=== PATIENT | male | born 1985 | race American Indian/Alaskan Native ===

== ENCOUNTER 2020-07-03 00:46 | Emergency (ER) | payer BC ==
[2020-07-03] MEDS ORDERED: ASPIRIN 325 MG TAB PO ONE (00:49)
--- NOTE | 2020-07-03 01:17 | Emergency Department Report ---
ED Chest Pain HPI - General Chief Complaint: Chest Pain Stated Complaint: CHEST PAIN Time Seen by Provider: 07/03/20 01:05 Source: patient Mode of arrival: Ambulatory Limitations: No Limitations - History of Present Illness Initial Comments: 35-year-old male presents to ED with chest pain x2 weeks. Patient states pain is located in the substernal and radiates down into the epigastric area and over to the left upper quadrant. Patient reports previous episodes of pancreatitis in the past. States this pain sort of feels like his pancreatitis. Patient denies any nausea, vomiting, diarrhea. Patient denies any cough or shortness of breath. He denies any diaphoresis. Patient denies any tobacco use. He denies any alcohol use. States he has been told in the past that his pancreatitis is triggered by his diet. MD Complaint: chest pain -: week(s) (2) Onset: during rest Pain Location: substernal Pain Radiation: abdomen (Epigastrium) Severity: moderate Severity scale (0 -10): 10 Quality: sharp Consistency: intermittent Improves With: nothing Worsens With: nothing re: denies: nausea, vomting, diaphoresis, dyspnea Other Symptoms: denies: cough, fever - Related Data Previous Rx's Medication Instructions Recorded Last Taken Type traMADoL [Ultram] 50 mg PO Q6HR PRN #7 tablet 07/03/20 Unknown Rx Allergies Allergy/AdvReac Type Severity Reaction Status Date / Time No Known Allergies Allergy Unverified 05/22/16 19:56 Heart Score - HEART Score History: Slightly suspicious EKG: Normal Age: < 45 Risk factors: 1-2 risk factors Troponin: < normal limit HEART Score: 1 ED Review of Systems ROS: Stated complaint: CHEST PAIN Other details as noted in HPI Comment: All other systems reviewed and negative Constitutional: denies: chills, fever Respiratory: denies: cough, shortness of breath Cardiovascular: chest pain Gastrointestinal: abdominal pain. denies: nausea, vomiting ED Past Medical Hx - Past Medical History Previous Medical History?: Yes Hx Asthma: Yes Additional medical history: G6PD. Pancreatitis - Surgical History Past Surgical History?: No - Social History Smoking Status: Never Smoker Substance Use Type: None - Medications Home Medications: Home Medications Medication Instructions Recorded Confirmed Last Taken Type traMADoL [Ultram] 50 mg PO Q6HR PRN #7 tablet 07/03/20 Unknown Rx ED Physical Exam - General Limitations: No Limitations General appearance: alert, in no apparent distress - Head Head exam: Present: atraumatic, normocephalic - Eye Eye exam: Present: normal appearance, EOMI - ENT ENT exam: Present: mucous membranes moist - Neck Neck exam: Present: normal inspection - Respiratory Respiratory exam: Present: normal lung sounds bilaterally. Absent: respiratory distress - Cardiovascular Cardiovascular Exam: Present: regular rate, normal rhythm - GI/Abdominal GI/Abdominal exam: Present: soft, tenderness (epigastric). Absent: distended - Extremities Exam Extremities exam: Present: normal inspection - Neurological Exam Neurological exam: Present: alert, oriented X3 - Psychiatric Psychiatric exam: Present: normal affect, normal mood - Skin Skin exam: Present: warm, dry, intact, normal color ED Course Vital Signs 07/03/20 07/03/20 07/03/20 00:58 01:01 01:13 Temperature 98.2 F Pulse Rate 63 60 Respiratory 20 18 13 Rate Blood Pressure 112/75 127/83 [Left] O2 Sat by Pulse 98 100 99 Oximetry 07/03/20 07/03/20 07/03/20 01:56 03:50 05:04 Temperature Pulse Rate 64 60 60 Respiratory 19 15 17 Rate Blood Pressure 124/75 101/59 114/53 [Left] O2 Sat by Pulse 98 98 99 Oximetry ED Medical Decision Making - Lab Data Result diagrams: 07/03/20 01:03 07/03/20 01:03 - EKG Data -: EKG Interpreted by Oh EKG shows normal: sinus rhythm, axis, intervals, QRS complexes, ST-T waves Rate: normal - EKG Data Interpretation: no acute changes - Radiology Data Radiology results: report reviewed, image reviewed - Medical Decision Making 35-year-old male with 2-week history of substernal chest pain radiating down into the epigastric area. CTA chest shows no evidence of dissection. Lipase was slightly elevated at 72, however no evidence of pancreatic inflammation on CT. Patient reports improvement of pain with morphine. EKG shows no ST changes. Troponin negative x2. Patient will be discharged at this time. Nonspecific chest pain versus pancreatitis. Patient info sent to [facility] for urgent cardiology follow-up. Patient will be discharged at this time with prescriptions. Outpatient follow-up advised, return precautions given. - Differential Diagnosis ACS, pancreatitis, aortic dissection Critical care attestation.: If time is entered above; I have spent that time in minutes in the direct care of this critically ill patient, excluding procedure time. ED Disposition Clinical Impression: Chest pain Disposition: DC- TO HOME OR SELFCARE Is pt being admited?: No Condition: Stable Instructions: Pancreatitis Eating Plan, Nonspecific Chest Pain, Adult, Chest Pain (ED) Prescriptions: traMADoL [Ultram] 50 mg PO Q6HR PRN #7 tablet PRN Reason: Pain Referrals: PRIMARY MD MOHAN [Primary Care Provider] - 3-5 Days KATARINA ZAMUDIO MD [Staff Physician] - 3-5 Days [facility] [Provider Group] - 3-5 Days Forms: Work/School Release Form(ED) Time of Disposition: 05:04
[2020-07-03] MEDS ORDERED: ONDANSETRON 4 MG/2 ML INJ IV ONE (01:28)
[2020-07-03] MEDS ORDERED: MORPHINE 2 MG/1 ML INJ IV ONE (01:28)
[2020-07-03 01:35] LABS: Basophils % (Auto) 0.8 % (0.0-1.8); Eosinophils # (Auto) 0.1 K/mm3 (0.0-0.4); Eosinophils % (Auto) 1.9 % (0.0-4.3); Hematocrit 41.7 % (35.5-45.6); Hemoglobin 13.8 gm/dl (11.8-15.2); Lymphocytes # (Auto) 2.9 K/mm3 (1.2-5.4); Lymphocytes % (Auto) 46.7 % (13.4-35.0); Mean Corpuscular HGB Conc 33 % (32-34); Mean Corpuscular Volume 90 fl (84-94); Monocytes # (Auto) 0.5 K/mm3 (0.0-0.8); Monocytes % (Auto) 7.9 % (0.0-7.3); Platelet Count 249 K/mm3 (140-440); Red Blood Count 4.62 M/mm3 (3.65-5.03); Red Cell Distribution Width 12.3 % (13.2-15.2)
--- NOTE | 2020-07-03 01:35 | XRay Report ---
CHEST 1 VIEW 07/03/2020 1:21 AM INDICATION / CLINICAL INFORMATION: Chest Pain. COMPARISON: None available. FINDINGS: SUPPORT DEVICES: None. HEART / MEDIASTINUM: No significant abnormality. LUNGS / PLEURA: No significant pulmonary or pleural abnormality. No pneumothorax. ADDITIONAL FINDINGS: No significant additional findings. IMPRESSION: 1. No acute findings. Signer Name: Sanchez Alvarado MD Signed: 07/03/2020 1:31 AM Workstation Name: [id number]
[2020-07-03 02:12] LABS: Alanine Aminotransferase 19 units/L (7-56); Albumin 4.5 g/dL (3.9-5); BUN/Creatinine Ratio 13; Blood Urea Nitrogen 14 mg/dL (9-20); Calcium 9.5 mg/dL (8.4-10.2); Hemolysis Index 3
--- NOTE | 2020-07-03 03:58 | Cat Scan Report ---
CTA CHEST WITH IV CONTRAST INDICATION: chest pain; also hx pancreatitis. TECHNIQUE: Axial CT images were obtained through the chest after injection of 100 cc IV contrast. 3 plane MIP re constructions were produced. All CT scans at this location are performed using CT dose reduction for ALARA by means of automated exposure control. COMPARISON: None available. FINDINGS: PULMONARY ARTERIES: No pulmonary emboli. THORACIC AORTA: No acute abnormality. HEART: Normal. CORONARY ARTERIES: No significant calcification. PLEURA: No pleural effusion. No pneumothorax. LYMPH NODES: No significant adenopathy. LUNGS: No acute air space or interstitial disease. ADDITIONAL FINDINGS: None. UPPER ABDOMEN: No acute findings. Gallbladder surgically absent SKELETAL STRUCTURES: No significant osseous abnormality. IMPRESSION: 1. No CT evidence for pulmonary embolism. 2. No acute findings. Signer Name: Sanchez Alvarado MD Signed: 07/03/2020 3:54 AM Workstation Name: [id number]
--- NOTE | 2020-07-03 04:13 | Cat Scan Report ---
CTA ABDOMEN AND PELVIS WITHOUT AND WITH IV CONTRAST INDICATION: chest pain; also hx pancreatitis. TECHNIQUE: Axial CT images were obtained through the abdomen and pelvis before and after after injection of 100 cc IV contrast. 3 plane MIP reconstructions were produced. All CT scans at this location are performe d using CT dose reduction for ALARA by means of automated exposure control. COMPARISON: None available. FINDINGS: Aorta: No acute abnormality. Renal arteries: No acute abnormality. Celiac artery: No acute abnormality. Superior mesenteric artery: No acute abnormality. Inferior mesenteric artery: No acute abnormality. Right iliac arteries: No acute abnormality. Left iliac arteries: No acute abnormality. FINDINGS: LOWER CHEST: No significant abnormality. LIVER: No significant abnormality. GALLBLADDER: Surgically absent BILE DUCTS: No significant abnormality. PANCREAS: No significant abnormality. SPLEEN: No significant abnormality. ADRENALS: No significant abnormality. RIGHT KIDNEY and URETER: No significant abnormality. LEFT KIDNEY and URETER: No significant abnormality. STOMACH and SMALL BOWEL: No significant abnormality. COLON: No significant abnormality. APPENDIX: Normal PERITONEUM: No free fluid. No free air. No fluid collection. LYMPH NODES: No significant adenopathy. AORTA and ARTERIES: No significant abnormality. IVC and VEINS: No significant abnormality. URINARY BLADDER: No significant abnormality. REPRODUCTIVE ORGANS: No significant abnormality. ADDITIONAL FINDINGS: None. SKELETAL SYSTEM: No significant abnormality. IMPRESSION: 1. No CT evidence for pancreatitis or other acute inflammatory process Signer Name: Sanchez Alvarado MD Signed: 07/03/2020 4:09 AM Workstation Name: [id number]
[2020-07-03 05:05] VITALS: BP 114/53
== END 2020-07-03 05:31 | disposition home or self-care (01) ==
LOC: ED 00:46
DX: R07.9 Chest pain, unspecified (principal); J45.909 Unspecified asthma, uncomplicated; Z79.899 Other long term (current) drug therapy
CPT/HCPCS: 36415; 71045; 71275; 74174; 80053; 83690; 84484; 85025; 93005; 96374; 96375; 99284; J2270; J2405

== ENCOUNTER 2020-09-20 23:50 | Emergency (ER) | payer BC, OTHER ==
[2020-09-21 00:54] VITALS: BP 108/73
[2020-09-21] MEDS ORDERED: traMADol 50 MG TAB PO ONE (01:33)
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
--- NOTE | 2020-09-21 03:07 | XRay Report ---
LEFT SHOULDER RADIOGRAPH, 3 VIEWS INDICATION / CLINICAL INFORMATION: left shoulder pain COMPARISON: None available. FINDINGS: BONES / JOINT(S): No acute displaced fracture or subluxation. No significant arthritis. SOFT TISSUES: No significant abnormality. ADDITIONAL FINDINGS: None. Signer Name: Jess Finn MD Signed: 09/21/2020 3:02 AM Workstation Name: [id number]
== END 2020-09-21 02:44 | disposition home or self-care (01) ==
LOC: ED 23:50
DX: S46.912A Strain of unspecified muscle, fascia and tendon at shoulder and upper arm level, left arm, initial encounter (principal); S16.1XXA Strain of muscle, fascia and tendon at neck level, initial encounter; J45.909 Unspecified asthma, uncomplicated; F17.200 Nicotine dependence, unspecified, uncomplicated; Z98.890 Other specified postprocedural states; Z79.899 Other long term (current) drug therapy; Y04.8XXA Assault by other bodily force, initial encounter; Y93.89 Activity, other specified; Y92.89 Other specified places as the place of occurrence of the external cause; Y99.8 Other external cause status